=== PATIENT | female | born 1970 | race Caucasian/White ===

== ENCOUNTER → 2021-03-07 15:08 | Outpatient (CLI) | payer OTHER, SELFPAY ==
[2021-03-07 15:48] LABS: COVID19 -Nasal RAPID Negative (Negative)
== END ==
PROVIDERS: Referring Provider Obstetrics & Gynecology; Visit Provider Obstetrics & Gynecology
DX: Z01.812 Encounter for preprocedural laboratory examination (principal); Z20.822 Contact with and (suspected) exposure to COVID-19
CPT/HCPCS: 87635

== ENCOUNTER 2021-03-08 08:52 | Day surgery (SDC) | payer OTHER, SELFPAY ==
[2021-03-05 13:38] VITALS: BMI 36.5
[2021-03-08] VITALS (13 sets, daily range): BP systolic 106–139; BP diastolic 61–78; PULSE 68–85; RESP 12–18; TEMP 36.1–36.8; O2SAT 96–99; BMI 36.5
--- NOTE | 2021-03-08 | PATH_ITS ---
[facility] Accession Number: [id number] . 01 Material submitted: . uterus - UTERUS, CERVIX, BILATERAL FALLOPIAN TUBES . 02 Diagnosis: Uterus, Cervix, Bilateral Fallopian Tubes, Hysterectomy and Bilateral Salpingectomy (Weight 285 grams): Cervix with prominent Nabothian gland cysts; negative for squamous dysplasia or malignancy. Endocervix with acute and chronic inflammation and prominent tunnel clusters; negative for glandular dysplasia or malignancy. Poorly preserved endometrium with a benign polyp (10 mm posterior fundus); negative for glandular hyperplasia, cytologic atypia, or malignancy. Myometrium with involvement by adenomyosis and with a submuosal leiomyoma (25 mm); negative for atypia or malignancy. Uterine serosa with no significant histomorphologic abnormality. Segments of detached fallopian tube x2, one with a plastic device present at gross examination suggestive of possible previous ligation; negative for atypia or malignancy. [facility] 03/13/2021 1621 Local . 02 Electronically signed: . Tere Mcneil MD, Pathologist NPI- [id number] . 01 Gross description: . The specimen is received in formalin, labeled with the patient's name and uterus, cervix, and bilateral fallopian tubes, consists of a 285-gram, 12.0 cm (fundus to cervix) by 6.0 cm (anterior to posterior) by 9.0 cm cornu to cornu) uterus and cervix with detached, undesignated bilateral fallopian tubes. The serosa is dorman-brown, smooth and glistening. The ectocervical mucosa is renteria-dorman and glistening. The cervical os measures 1.5 cm and shows a protruding 0.5 cm mucinous cyst. The specimen is bivalved to reveal a renteria-brown smooth endocervical canal which measures 2.0 x 0.5 cm. The small mucoid cyst is present at the cervical os. The endometrial cavity is renteria-red and measures 2.5 x 1.5 cm. There appears to be a 1.0 x 1.0 cm soft renteria-red fragmented polypoid-type lesion which appears to be delicately attached to the endometrium and grossly likely represents a polyp. It is present in the posterior endometrium near the fundic end. Also present is a 2.5 x 2.5 cm submucosal renteria-white whorled lesion, likely representing a leiomyoma. This is present near the fundic portion. Sectioning through the leiomyoma reveal a focal area of hemorrhage. The detached fallopian tubes measure 4.5 cm and 4.6 cm by 0.3 x 0.2 cm. The serosa is renteria-brown and focally shaggy. A circular white plastic device is identified near the cornual end which may indicate a prior ligation procedure. Sectioning reveals a pinpoint lumen. Lathing Supervisor sections are submitted as follows: . A1: Anterior cervix. A2: Posterior cervix with the cyst. A3-A4: Anterior endomyometrium. A5-A6: Posterior endomyometrium with possible endometrial polyp in A5. A7-A9: Lathing Supervisor sections of the leiomyoma. A10-A11: Areas of hemorrhage adjacent to the leiomyoma. A12-A13: Fallopian tube with fimbria. ([id number]) /MRV 03/12/2021 [facility]2 Local . 02 Pathologist provided ICD-10: D25.9 . 02 CPT . 890098 Performed at: 01 [facility] [address] [place] [address], [place], [place] [id number] MD Reece Denise MD Phone: [phone] Performed at: [address] [facility] [id number] [place], [place] [id number] MD Cordelia Storm MD Phone: [phone]
[2021-03-08] MEDS: LACTATED RINGERS 1,000 ML 42 ML IV (09:30)
--- NOTE | 2021-03-08 09:51 | PM.PREOP ---
Pre-operative Note COVID-19 COVID-19 status: Negative Result date/Date tested (Pos, Neg/Pending): 03/07/21 Interval Note History & Physical reviewed/Exam performed by Physician: Yes Changes to H&P: No
[2021-03-08] MEDS: CLINDAMYCIN 900 MG/50 ML PIGGYBACK 50 MG IV (10:20)
[2021-03-08] MEDS: levoFLOXacin 500 MG/100 ML PIGGYBACK 100 MG IV (10:30)
--- NOTE | 2021-03-08 10:56 | SUR.OPER ---
Lithotomy on padded OR bed. Hanahan Pad Positioner under torso. Head on pillow, arms padded and tucked at sides. Legs secured in padded yellow fins stirrups.
[2021-03-08] MEDS: ACETAMINOPHEN IV 1,000 MG/100 ML VIAL 400 MG IV (11:00)
[2021-03-08] MEDS: BUPIVACAINE 0.5% (PF) 30 ML, EPINEPHrine 0.15 MG INJ (11:01)
[2021-03-08] MEDS: ROPIVACAINE 0.2% PF 2 MG/ML 10ML AMP 20 ML INJ (12:02)
--- NOTE | 2021-03-08 12:30 | P.OP_ITS ---
Operative Date/Time/Diagnoses Date of procedure: 03/08/21 Time of procedure: 10:20 Pre-op diagnosis: Intractable menorrhagia Intramural fibroid Post-op diagnosis: same Procedure & Clinicians Procedure: Procedures Operation Date: 03/08/21 09:45 Actual Procedure Side Surgeon p Total Laparoscopic Hysterectomy w/Bilateral Salpingectomy,Cystoscopy Reece Ford MD Indications: Arnie is a 50-year-old LMP starting March 2020 who presented in 01/2021 for evaluation of continuous bleeding since that time.? Patient's last Pap smear was in mid 2019 and her Paps have always been normal.? She experienced menarche at age 13 her periods have been regular up until March 2020.? She has has continuous bleeding since that time however and was transfused 3 units of packed red blood cells approximately 4 weeks ago.? Bleeding has been continuous and at times she goes through a pad in less than an hour with overnight changes 2-3 times.? She had been placed on medroxyprogesterone acetate following an ER visit but she is running out at this time and her bleeding had started pick back up when she was started on TXA x 5 days and Norethindrone acetate 5 mg daily.? Unfortunately she experienced significant nausea, and stopped both medications.? Daily Provera has been reinitiated and her bleeding continues albeit at a slower rate. Pelvic ultrasound at [facility] 01/29/2021 shows the uterus to be slightly enlarged at 10.1 x 6 x 6 cm with the myometrium having a heterogenous appearance.? The endometrium measures 12 mm in combined thickness.? Within the posterior intramural region there is a focus of heterogeneous echogenicity measuring 3.9 x 3 x 2.6 cm.? A similar foci in the mid anterior intramural region is identified which measures 2.5 x 2 x 3.2 cm.? Both ovaries appeared to be normal.? Findings were felt to be consistent with uterine fibroids.? Endometrial biopsy performed 02/19/2021 shows portions of weakly proliferative endometrium with patchy regions of breakdown; negative for glandular hyperplasia, cytologic atypia, or malignancy.? Some endometrial fragments demonstrated prominent vessels suggestive of polyp.? Pseudo decidualization was also noted in most fragments suggestive of possible exogenous hormone effect (Provera). After discussion of the potential causes of her persistent menorrhagia and options for treatment, the patient has requested that we proceed with total laparoscopic hysterectomy and bilateral salpingectomy.? Her surgery is scheduled to be performed in the main OR of [facility] on 03/08/2021 and she presents today for her scheduled surgery. Surgeon: Merritt Ford Pre Billing Specialist: Nano Ledezma Anesthesia Type: General Operative Notes Findings: The uterus is approximately 6 weeks in size. The anterior and posterior cul-de-sacs are free of any abnormalities. Both fallopian tubes demonstrate changes consistent with prior Falope ring applications. Both ovaries appeared to be normal. The appendix appears normal as does the liver edge and upper abdomen to laparoscopic visualization. Closure Type: primary Specimen(s): left tube, right tube and uterus Applied: catheter Estimated blood loss (mL): 200 Blood products transfused: none Procedure in detail: With the patient under satisfactory general endotracheal anesthesia in the modified dorsal lithotomy position, the perineum, vagina, and abdomen were prepped and draped in the usual fashion for TLH. A pre-surgical safety time-out was then taken in accordance with [facility] protocols. A bivalve speculum was then inserted in the vagina and the cervix visualized. The anterior lip of the cervix was grasped with a single-tooth tenaculum and a [employer] uterine manipulator with a medium cup was placed in the uterine cavity. The speculum and tenaculum were removed and the colpotomy cup and obturator were appropriately positioned and secured. The umbilicus was then infiltrated with 0.5% Marcaine with epinephrine and a 5 mm vertical incision was made in the skin of the inferior umbilicus. Veress needle was then used to insufflate the abdomen with carbon dioxide in once insufflated a 5 mm trocar and sleeve were placed through the incision. The presence of the sleeve in the abdominal cavity was confirmed with the laparoscoped and a 2nd and 3rd 5 mm port were placed in the left and right mid quadrants using a similar technique to that a used on the umbilicus. Using a 3 puncture technique the pelvis and abdomen were inspected with the findings as noted previously. Attention was turned to the left adnexa with the distal tube grasped with a laparoscopic forceps and the PK bipolar device was then used to coagulate first the fimbria ovarica followed by the mesosalpinx and across the utero-ovarian ligament on the left followed by the ro und. The dissection was then carried down the lateral aspect of the uterus on the left side and the bladder flap was initiated from the left side. The peritoneum was skeletonized posteriorly as well and the vessels were coagulated and divided at the level of the colpotomy cup. Attention was then turned to the right side with the distal tube grasped and elevated so the fimbria varicose could be coagulated and divided with PK device. That dissection was carried out across the mesosalpinx, the utero-ovarian ligament, and the round ligament on the right-hand side. The dissection was carried downward lateral to the uterine vessels to the level of the colpotomy cup where the bladder flap was completed and the vessels secured on the right side. At that point, monopolar cautery was used to circumscribe the vaginal apex at the colpotomy cup and once the circumferential incision was completed the uterus was delivered through the vagina. During the delivery process, the right uterine artery began bleeding but was easily controlled with placement of a Geremias [place] clamp and a transfixing stitch of 0 Vicryl. The remainder of the vaginal cuff was then closed with 0 Vicryl in [id number] stitches and hemostasis vaginally was excellent. The abdomen was then re-insufflated and the pelvis inspected. There were no areas of bleeding noted in the pelvis and both ureters were seen to be peristalsing freely. The pneumoperitoneum was then vented and the laparoscopic ports removed. A laparoscopic port incisions were then closed with 4-0 Monocryl using inverted interrupted sutures and appropriate dressings were then applied. Because of the angle stitch required on the right side to tie off the ascending branch of the uterine artery, cystoscopy was performed with sterile saline as a distention medium using a 70 degree scope. Visualization of the bladder demonstrated only some slight metaplastic changes at the trigone but also vigorous jets of clear urine coming from each ureteral orifice. There was no evidence of any injury or suture material involve with bladder. The cystoscope was then removed, the patient awakened, and transferred to the PACU having tolerated the procedure well. Complications: none Post-operative Condition: stable Disposition: PACU Plan for aftercare: Routine postoperative care. Patient requests early discharge on the afternoon of surgery.
--- NOTE | 2021-03-08 12:45 | SUR.PHASEI ---
Received to PACU after general anesthesia. Airway patent, self maintained. Report received from Dr Good and MOSES Thayer.
[2021-03-08] MEDS: OXYCODONE IR 5 MG TABLET PO (13:16)
--- NOTE | 2021-03-08 13:20 | SUR.PHASEI ---
Pt sleeping unless disturbed. States pain 10/02. Medicated with oxycodone.
--- NOTE | 2021-03-08 13:41 | SUR.PHASEI ---
Pt sleeping unless disturbed. Pt states no change in pain. Will discharge to floor without further medication due to sleepiness. Report called to MOSES Muir.
[2021-03-08] MEDS: OXYCODONE/ACETAMINOPHEN 5/325 TABLET 2 TAB PO ×2 (14:38→22:55)
[2021-03-08] MEDS: LACTATED RINGERS 1,000 ML 100 ML IV (14:42)
--- NOTE | 2021-03-08 14:55 | PC.NURSE ---
Pt arrived from PACU this afternoon at 1345, VSS, afebrile on 2LNC. Drowsy but answering questions with facial grimace reporting pain 8/10 but drifting on and off back to sleep. Patient one hour later reports abdominal pain stabbing through her spine at 10/10 and she is medicated with 2 tabs PRN percocet. LR at 100 ml/hr. Upon BP recheck reading is 98/70 HR 66, continuous monitoring. She reports mild nausea. Lyons in place draining clear yellow urine.
[2021-03-08] MEDS: ONDANSETRON 8 MG in SODIUM CHLORIDE 0.9% 50 ML 216 ML IV ×2 (15:44→22:55)
[2021-03-08] MEDS: MORPHINE 4 MG/ML INJ IV ×2 (15:49→20:38)
[2021-03-08] MEDS: HYDROMORPHONE 2 MG TABLET PO ×2 (19:01→19:19)
[2021-03-09] MEDS: MORPHINE 4 MG/ML INJ IV ×2 (01:00→05:10)
[2021-03-09] MEDS: LACTATED RINGERS 1,000 ML 100 ML IV (01:02)
[2021-03-09 03:01] VITALS: BP 100/53; PULSE 73; RESP 16; TEMP 37.1; O2SAT 97
[2021-03-09] MEDS: TRAMADOL 50 MG TABLET 100 MG PO ×2 (03:06→07:02)
[2021-03-09 06:13] VITALS: BP 158/77; PULSE 115; RESP 18; O2SAT 93
[2021-03-09 09:03] VITALS: O2SAT 95
[2021-03-09 10:00] VITALS: BP 133/79; PULSE 76; RESP 17; TEMP 36.4; O2SAT 98
--- NOTE | 2021-03-09 10:32 | PM.DS.1 ---
History of Present Illness History of Present Illness Date Patient Seen: 03/09/21 Time Patient Seen: 10:33 Chief complaint: Intractable menorrhagia, uterine fibroid Narrative: Intractable menorrhagia, uterine fibroid Discharge Providers Provider Date of admission: 03/08/2021 Discharge Date: 03/09/21 Discharge provider: Reece Ford MD Summary Hospital Course Discharge Diagnosis: Menorrhagia Uterine fibroid Hospital Course: On the afternoon of 03/08/2021 the patient underwent an uneventful total laparoscopic hysterectomy with bilateral salpingectomy. The details of the procedure well summarized in my operative note of that date. Following her surgery she has had prompt return of bowel and bladder function, she is ambulating well, is tolerating regular diet, and her pain is under reasonable control with oral tramadol. Use of morphine, Percocet, and Dilaudid at all resulted in significant nausea and therefore were discontinued. She will be discharged at this time to home with written instructions and follow-up will be in 2 weeks. Medications include tramadol 100 mg p.o. Q 4-6 hours as needed pain dispense 20 with no refills. Follow-up will be in 2 weeks or as needed. Prior to discharge the patient was counseled regarding precautionary symptoms, limitations of activity, medications, and plans for follow-up. Status at Discharge Cognitive/behavioral status at discharge: oriented Functional status at discharge: independent ambulation Overall status at discharge: patient is progressing back to baseline Time Spent with Patient Time spent: Less than 30 minutes Exam Vital Signs (past 8 hours): - 03/09/21 03:01 03/09/21 06:13 03/09/21 09:03 Temperature 98.7 F Pulse Rate 73 115 H Respiratory Rate 16 18 Blood Pressure 100/53 L 158/77 H Pulse Oximetry 97 93 95 Oxygen Delivery Method Room Air Oxygen Flow Rate 0 Const General: cooperative and comfortable Nutritional Appearance: average body habitus Orientation: alert and oriented x3 HENMT Head: normocephalic and atraumatic Ears: hearing grossly normal bilaterally Eyes General: appearance normal, both eyes and all related structures EOM: EOM intact bilaterally Resp Effort & Inspection: normal respiratory effort and able to speak in complete sentences Auscultation: clear to auscultation bilaterally Cardio Rate: regular rate Rhythm: regular rhythm Heart Sounds: S1 normal, S2 normal and no murmurs GI Inspection: normal to inspection and incision (Dressings are clean and dry) Palpation: soft, no hepatosplenomegaly and tender (Mild, diffuse lower abdominal tenderness) General: other (Deferred; no vaginal bleeding noted postop) Extrem General: no calf tenderness [facility] Medical History Abnormal vaginal bleeding in premenopausal patient (~2020) Anemia due to blood loss, chronic (~2020) Intramural uterine fibroid (~2020) Seasonal allergies Family History Sister Cancer Family/Other Cancer Social History household members: family Smoking Status: Former smoker alcohol intake: never Discharge Assessment & Plan Assessment and Plan Assessment: Status post total laparoscopic hysterectomy with bilateral salpingectomy for intractable menorrhagia and uterine fibroid Patient meets discharge criteria Plan of Treatment: Discharge to home with tramadol 100 mg p.o. Q 4-6 hours as needed pain dispense 20 Routine postoperative care instructions Follow-up 2 weeks Discharge Plan Discharge Plan Patient Disposition: Home Provider Discharge Comment: Please review the written instructions provided when you were discharged from the hospital. Your follow-up appointment with me is scheduled for 2 weeks following her surgery and I look forward to seeing you then. If in the meanwhile however you have any issues, concerns, or problems, please contact me either through the office phone number or via the patient portal. Discharge orders & Medications Discharge Orders: Discharge (Order); Ordered 03/09/21 Ordered By: Reece Ford Prescriptions: New tramadol 50 mg Tablet 100 mg PO Q4-6H PRN (Reason: Pain, Moderate (4-6)) 3 Days Qty: 20 0RF Discontinued norethindrone acetate 5 mg tablet 5 mg PO DAILY Qty: 30 0RF tranexamic acid 650 mg tablet 1,300 mg PO TID Qty: 30 12RF Rx Instructions: Start taking as soon as possible and again at the onset of any significant vaginal bleeding. Diet/Activity/Treatments Diet: Diet as Tolerated Activity: As tolerated Skin/Wound/Dressing Care Report to your healthcare provider any signs of infection, such as:: chills, fever, increased pain, unusual drainage and unusual redness Dressing: Remove dressings a.m. 03/10/2021 Visit Report/Discharge Packet Instructions: DI for Hysterectomy, DI for Laparoscopy, DI for Prescription Opioid Use Stand Alone Forms: Surgery Discharge Discharge Data Attending Provider: Reece Ford VTE Deep Vein Thrombosis/Pulmonary Embolism Present on Admission: No
--- NOTE | 2021-03-09 12:27 | CM.DANOTE ---
DCP: Case received, EMR reviewed and met with patient. Introduced self and role. Was able to obtain information regarding patient's baseline activity status prior to surgery. DCP assessment completed with information currently available. Patient is a 50 year old female who admitted yesterday morning to the care of the AUTO BODY MECHANIC APPRENTICE team. PCP: [facility] Provider. Payer: confirmed: [email or web address]. Patient came to the hospital for a surgical procedure. Patient had a laparoscopic hysterectomy. Patent has history of intractable menorrhagia. Met with patient in her room. She is eager to go home. Patient is independent at her baseline. She is employed at [employer]. She resides alone in [place], does have some support if needed. P: Patient has discharge orders for home today with no needs. Keren Hui RN/Dietary Supervisor Discharge Planning/Care Management CM Discharge Assessment Start: 03/09/21 12:25 Freq: Status: Active Protocol: Document 03/09/21 12:26 (Rec: 03/09/21 12:26 [id number]) Discharge Planning Assessment Assigned Commercial Litigation Paralegal Keren Hui RN/Dietary Supervisor Advance Directives? No History Provided By Patient,Medical Record Prior Living Arrangements House Household Members family Type of transporation used prior to Drives own vehicle admit Independent with ADL's Yes Is patient alert and oriented? Yes Caregiver for Another No Barriers to Discharge No Discharge Plan Home Transportation Arrangement Friend or family Referrals Initiated None needed Whiteboard Updated in Patient Room with Yes name and ext. # of Commercial Litigation Paralegal Review Status In Process Next Review Type Continued Stay Review Pre-Anesthesia Assessment Start: 03/05/21 13:38 Freq: Status: Complete Protocol: Document 03/05/21 13:38 CAB (Rec: 03/05/21 13:43 [facility] [id number]) Pre-Anesthesia Assessment Patient Information Reviewed Via Chart Review H&P Completed Within 30 Days Yes Comment COVID screen @ 03/07/21 Seen Specialist in Last 12 Months Yes Specialist Seen Coat Room Attendant Primary Language Citizen [place] Quality Rep Required No Height 5 ft 3 in Weight 206 lb Body Mass Index (BMI) 36.5 Hx Anesthesia Reactions Prior surgical history not identified Hx Blood Transfusions Yes: 2020 Anesthesia Review Requested No Environmental Auditor No Smoking Status Former smoker History of Falling (Recent or History of No ) Patient is completely paralyzed or No completely immobile Mental Status Oriented to own ability Hx Sleep Apnea No Currently Taking a Beta Sanjuanita No Anti-Coagulant Therapy No Has a Roll Forming Machine Set Up Operator No Cardiac Testing No Hx Pacemaker/ICD No Pacemaker Rep Required? No Cardiac Clearance Received Not Applicable Urinary Catheter Present No Hx Urinary Self Catheterization No Diabetes No Patient No Lactating No Marital Status Single Patient Discharge Plan Description Return Home
== END 2021-03-09 11:45 | disposition home or self-care (01) ==
LOC: OR 08:53 → AC 08:56
PROVIDERS: Referring Provider Obstetrics & Gynecology; Visit Provider Obstetrics & Gynecology
PROC: 0UT94ZZ Resection of Uterus, Percutaneous Endoscopic Approach (ICD-10-PCS; CPT 58573; principal; 2021-03-08 09:45)
DX: D25.1 Intramural leiomyoma of uterus (principal); D50.0 Iron deficiency anemia secondary to blood loss (chronic); Z98.890 Other specified postprocedural states; N88.8 Other specified noninflammatory disorders of cervix uteri; N72 Inflammatory disease of cervix uteri; N84.0 Polyp of corpus uteri; N80.0 Endometriosis of uterus; D25.0 Submucous leiomyoma of uterus
CPT/HCPCS: 58573; 94760; J0131; J0171; J1100; J1885; J1956; J2250; J2270; J2405; J2704; J2795; J3010